=== PATIENT | male | born 2000 | race Caucasian/White ===

== ENCOUNTER 2020-08-13 04:18 | Emergency (ER) | payer OTHER ==
[~2020-08-13] VITALS: Ht 188 cm; Wt 68.2 kg
[2020-08-13 04:34] VITALS: BP 126/53; TEMP 97.1
[2020-08-13 06:11] VITALS: PULSE 75
== END 2020-08-13 06:11 | disposition home or self-care (01) ==
LOC: COL.ER 04:18
DX: S01.511A Laceration without foreign body of lip, initial encounter (principal); F17.200 Nicotine dependence, unspecified, uncomplicated; W10.9XXA Fall (on) (from) unspecified stairs and steps, initial encounter; Y93.01 Activity, walking, marching and hiking; Y92.009 Unspecified place in unspecified non-institutional (private) residence as the place of occurrence of the external cause

== ENCOUNTER → 2020-08-18 | Outpatient (CLI) | payer OTHER ==
[2020-08-18 13:09] VITALS: BP 133/73; PULSE 83; TEMP 98.8
== END ==
LOC: COL.ER 12:51
DX: Z48.02 Encounter for removal of sutures (principal)